=== PATIENT | male | born 1980 | race Caucasian/White ===

== ENCOUNTER 2016-12-07 21:08 | Emergency (ER) | payer MEDICAID ==
[2016-12-07 21:31] VITALS: TEMP 98
--- NOTE | 2016-12-07 21:56 | C.PDOC ---
History Of Present Illness Pt took too many percocet for his back pain. Denies any suicidal or homicidal ideation. Pt received narcan by ems, and had a few episodes of emesis. Zofran also given en route. He is aaox3 , pleasant and cooperative Time Seen by Provider: 12/07/16 21:55 Chief Complaint (Nursing): Substance Abuse History Per: Patient History/Exam Limitations: no limitations Onset/Duration Of Symptoms: Hrs Current Symptoms Are (Timing): Still Present Suicide/Self Injury Attempted (Context): None Modifying Factor(s): Narcotics Severity: Moderate Pain Scale Rating Of: 4 Associated Symptoms: denies: Depression, Suicidal Thoughts, Suicidal Plan Involuntary Hold By: None Recent travel outside of the [place]: No Additional History Per: Patient Past Medical History Reviewed: Historical Data, Nursing Documentation, Vital Signs Vital Signs: Last Vital Signs Temp 98 F 12/07/16 21:30 Pulse 82 12/07/16 21:30 Resp 18 12/07/16 21:30 BP 122/82 12/07/16 21:30 Pulse Ox 99 12/07/16 22:10 Family History: States: No Known Family Hx - Social History Hx Alcohol Use: No Hx Substance Use: Yes (PERCOCET) - Immunization History Hx Influenza Vaccination: No Review Of Systems Constitutional: Negative for: Fever, Chills Cardiovascular: Negative for: Chest Pain Respiratory: Negative for: Shortness of Breath Gastrointestinal: Positive for: Nausea, Vomiting. Negative for: Abdominal Pain Genitourinary: Negative for: Hematuria Musculoskeletal: Positive for: Back Pain Skin: Negative for: Rash, Lesions, Jaundice, Bruising Neurological: Negative for: Weakness Psych: Positive for: Anxiety Physical Exam - Physical Exam Appears: Non-toxic, No Acute Distress Skin: Warm, Dry Head: Atraumatic Eye(s): bilateral: Normal Inspection, PERRL, EOMI Oral Mucosa: Moist Neck: Supple Chest: Symmetrical Cardiovascular: Rhythm Regular Respiratory: No Rales, No Rhonchi, No Wheezing Gastrointestinal/Abdominal: Soft, No Tenderness, No Distention Back: Muscle Spasm Extremity: Normal ROM Extremity: Bilateral: Atraumatic, Normal Color And Temperature Neurological/Psych: Oriented x3, Normal Speech, Normal Cognition Gait: Steady ED Course And Treatment - Laboratory Results Result Diagrams: 12/07/16 21:55 12/07/16 21:55 O2 Sat by Pulse Oximetry: 99 Pulse Ox Interpretation: Normal - Radiology CXR Interpretation: No: Infiltrates, Fracture, Pnemothorax Progress Note: blood work, ivf Reevaluation Time: 02:44 Reassessment Condition: Improved Medical Decision Making Medical Decision Making: Upon provider reevaluation patient is feeling better, is medically stable, and requires no further treatment in the ED at this time. Patient will be discharged home with Rx for zofran. Counseling was provided and all questions were answered regarding diagnosis and need for follow up with dr levy. There is agreement to discharge plan. Return if symptoms persist or worsen. Disposition Counseled Patient/Family Regarding: Studies Performed, Diagnosis - Disposition Referrals: Shaik Levy MD [Staff Provider] - Disposition: HOME/ ROUTINE Disposition Time: 21:56 Condition: FAIR Prescriptions: Ondansetron ODT [Zofran ODT] 1 odt PO BID PRN #10 odt PRN Reason: Nausea/Vomiting Instructions: Adult Overdose (ED) - Clinical Impression Clinical Impression: Drug abuse
[2016-12-07 22:09] LABS: CHLORIDE 97 mmol/L (98-107); POTASSIUM 3.5 mmol/L (3.6-5.2); SODIUM 138 mmol/L (132-148)
[2016-12-07 22:11] LABS: GFR AFRICAN-AMERICAN > 60
[2016-12-07 22:12] LABS: ALB/GLOB RATIO 1.5 (1.0-2.1); ALKALINE PHOSPHATASE 76 U/L (38-126); ALT/SGPT 11 U/L (21-72); AST/SGOT 26 U/L (17-59); BILIRUBIN,TOTAL 0.2 mg/dL (0.2-1.3); BLOOD UREA NITROGEN 14 mg/dL (9-20); CARBON DIOXIDE 28 mmol/L (22-30); GLUCOSE,RANDOM 126 mg/dL (75-110); TOTAL PROTEIN 7.7 g/dL (6.3-8.3)
[2016-12-07 22:13] LABS: CALCIUM 8.9 mg/dl (8.6-10.4)
[2016-12-07 22:14] LABS: BASO % 0.3 % (0.0-2.0); EOS # 0.1 K/uL (0.0-0.7); EOS % 0.4 % (0.0-4.0); HEMATOCRIT 41.3 % (35.0-51.0); LYMPH # 1.8 K/uL (1.0-4.3); LYMPH % 13.6 % (20.0-40.0); MEAN CELL VOLUME 86.1 fL (80.0-94.0); MEAN CORPUSCULAR HEMOGLOBIN 28.4 pg (27.0-31.0); MEAN PLATELET VOLUME 8.4 fL (7.2-11.7); MONO % 7.7 % (0.0-10.0); RED CELL DISTRIBUTION WIDTH 13.5 % (11.5-14.5); WHITE BLOOD COUNT 13.1 K/uL (4.8-10.8)
[2016-12-08] MEDS ORDERED: Sodium Chloride 0.9% 1,000 ML IV ONE (00:30)
[2016-12-08] MEDS ORDERED: Sodium Chloride 0.9% 1,000 ML ONE (00:39)
[2016-12-08 03:08] VITALS: BP 112/80; PULSE 78; RESP 20; O2SAT 98
== END 2016-12-08 03:08 | disposition home or self-care (01) ==
LOC: C.ER 21:08
DX: F11.10 Opioid abuse, uncomplicated (principal)
CPT/HCPCS: 80053; 80329; 85025; 85610; 85730; 96361; 96374; 99284; J2765; J7040

== ENCOUNTER 2017-01-20 12:30 | Day surgery (SDC) | payer MEDICAID ==
[2017-01-12 10:20] VITALS: BMI 27.2
[2017-01-20] MEDS ORDERED: Midazolam 2 MG/2 ML VIAL ONE (13:37)
[2017-01-20] MEDS ORDERED: Propofol 10 mg/ml Inj (20 ML) ONE (13:37)
[2017-01-20] MEDS ORDERED: Lactated Ringer's 500 ML IV ONE ×2 (13:39→15:15)
[2017-01-20] MEDS ORDERED: ceFAZolin 1 gm FROZEN Premix 1 GM/50 ML ML IVPB ONE (13:45)
[2017-01-20] MEDS ORDERED: Bacitracin 500 Units/gm Oint Foilpak UD ONE (14:05)
[2017-01-20] MEDS ORDERED: HYDROmorphone 0.5 mg/0.5 ml ISec IVP PRN (15:45)
[2017-01-20] MEDS ORDERED: Oxycodone/Acetaminophen 5/325 mg Tab ONE (16:11)
[2017-01-20] MEDS ORDERED: Oxycodone/Acetaminophen 5/325 mg Tab PO STA (16:13)
[2017-01-20 17:01] VITALS: BP 145/81; PULSE 75; RESP 20; TEMP 97.8; O2SAT 100
--- NOTE | 2017-01-21 07:38 | OP ---
PROCEDURE DATE: 01/20/2017 PREOPERATIVE DIAGNOSIS: Elective sterilization. POSTOPERATIVE DIAGNOSIS: Elective sterilization. PROCEDURE: Bilateral vasectomy. ANESTHESIA: General with local. DESCRIPTION OF PROCEDURE: While the patient was in the supine position and after giving the patient 1 gram of Ancef, genitalia prepped and draped in a sterile fashion. Marcaine injected. The vas was grasped on the right side. A puncture wound made. The vas was delivered and freed from the surround ing sheath. Fulguration of the sheath done. Distal clip applied to 2 clips applied proximally and a segment of the vas was removed. The same procedure was carried on the left side. Segment of the va s was removed after 2 clips proximally and 1 clip distally. The patient tolerated procedure well. A fter inspecting the area, there was no active bleeding. Dressing applied. The hole in the right salvador e was more bigger than what I look for, so 1 suture applied. The patient tolerated the procedure wel l. Dressing applied and the patient transferred in stable condition. Kelley Jha MD cc: 43 TT: 01/20/2017 18:20:31 jadon
== END 2017-01-20 17:10 | disposition home or self-care (01) ==
LOC: C.SDS 12:30
PROVIDERS: ATTEND Specialist
DX: Z30.2 Encounter for sterilization (principal)
CPT/HCPCS: 55250; 88302; J0690; J1170; J2250; J2704; J3010; J7120

== ENCOUNTER 2017-06-01 13:07 | Emergency (ER) | payer MEDICAID ==
[2017-06-01 13:07] VITALS: BMI 27.2
[2017-06-01 13:17] VITALS: BP 118/73; TEMP 97.7
[2017-06-01] MEDS ORDERED: Lidocaine 5% Patch TD STA (14:09)
--- NOTE | 2017-06-01 14:12 | C.PDOC ---
History Of Present Illness 36 y/o healthy male c/o right lower back pain last week for 2 days after heavy weight lifting at gym. pt states it got better, then yesterday, had sharp pain in lower back after getting out of car, pain radiates sometimes to right leg. pt taking nsaids with no improvement. pt denies any numbness, tingling. saddle anesthesia, bladder or bowel dysfunction. Time Seen by Provider: 06/01/17 13:42 Chief Complaint (Nursing): Back Pain Past Medical History Vital Signs: Last Vital Signs Temp 97.7 F 06/01/17 13:16 Pulse 78 06/01/17 15:43 Resp 18 06/01/17 15:43 BP 118/73 06/01/17 13:16 Pulse Ox 99 06/01/17 15:43 - Medical History PMH: Denies: Chronic Kidney Disease - Social History Hx Alcohol Use: No Hx Substance Use: No (PERCOCET NO LONGER) - Immunization History Hx Influenza Vaccination: No Review Of Systems Genitourinary: Negative for: Dysuria, Frequency, Hematuria Musculoskeletal: Positive for: Back Pain Physical Exam - Physical Exam Additional Physical Exam Comments: Constitutional: No acute distress. WDWN. Cardiovascular: Regular rate and rhythm. Chest: No tenderness. Respiratory: Clear to auscultation bilaterally. Back: No CVA and no mid-line tenderness. Right lumbar area with palpable muscle spasm. Motor sensations intact. Musculoskeletal: No tenderness or swelling of extremities. Skin: No rash. Neurologic: Alert, no focal deficit. ED Course And Treatment O2 Sat by Pulse Oximetry: 100 (RA) Pulse Ox Interpretation: Normal Medical Decision Making Medical Decision Making: no nsaids given at this time, pt last took 400 mg ibupofren at 6 am , 600 mg at 10 am today. Disposition Counseled Patient/Family Regarding: Diagnosis, Need For Followup, Rx Given - Disposition Referrals: [facility] [Outside] Disposition: HOME/ ROUTINE Disposition Time: 15:29 Condition: IMPROVED Additional Instructions: Apply cold or warm compresses to lower back- what ever feels better, several times a day. Take ibuprofen as prescribed, with food. Take muscle relaxant three times a day if at home, makes you sleepy. IF working, take only at bedtime. Avoid heavy lifting and gym/exercising until you are fully healed or you risk re-injuring yourself. Follow up in clinic or with your doctor. Prescriptions: Cyclobenzaprine [Cyclobenzaprine HCl] 10 mg PO Q8 #9 tab Ibuprofen [Motrin] 600 mg PO TID #30 tab Instructions: Muscle Spasm (ED) Forms: General Discharge Instructions, [facility] ([place]), Work Excuse - Clinical Impression Clinical Impression: Low back pain, Muscle spasm of back
[2017-06-01 15:44] VITALS: PULSE 78; RESP 18
[2017-06-01 17:08] VITALS: O2SAT 100
== END 2017-06-01 15:44 | disposition home or self-care (01) ==
LOC: C.ER 13:07
DX: M54.5 Low back pain (principal); M62.830 Muscle spasm of back